=== PATIENT | male | born 1940 | race Caucasian/White ===

== ENCOUNTER → 2016-11-09 | Outpatient (CLI) | payer MEDICARE | END | disposition home or self-care (01) | LOC: GMAM 10:47 | PROVIDERS: ATTEND Family Medicine | DX: Z12.5 Encounter for screening for malignant neoplasm of prostate (principal); Z00.00 Encounter for general adult medical examination without abnormal findings ==

== ENCOUNTER → 2016-11-19 | Outpatient (CLI) | payer MEDICARE | END | disposition home or self-care (01) | LOC: GMAM 14:38 | PROVIDERS: ATTEND Family Medicine | DX: B01.9 Varicella without complication (principal) ==

== ENCOUNTER → 2016-12-03 | Outpatient (CLI) | payer MEDICARE ==
--- NOTE | 2016-12-04 11:31 | MRI ---
EXAM DESCRIPTION: Knee,Left CLINICAL HISTORY: Medial left knee pain popping when flexing the knee. No known injury. COMPARISON: None Available. TECHNIQUE: MRI of the left knee is performed according to our usual protocol with multiplanar multi sequence imaging. FINDINGS: Small left knee joint effusion. 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 Significant thickening of the MCL consistent with prior high-grade sprain. Lateral collateral ligament and PCL intact. Full-thickness horizontal tear of the medial meniscus involving mid body and posterior horn extending all the way to the posterior central attachment site but without displaced fragment. Undersurface tear posterior horn lateral meniscus seen best on coronal imaging. 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 There are subchondral eburnation and cyst formation and reactive edema in the medial tibial plateau. IMPRESSION: 1. Extensive medial meniscus tear 2. 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 Undersurface tear posterior horn lateral meniscus 4. Chronic MCL sprain 5. Severe medial compartment chondrosis Electronically signed by: Donn Hernandez MD 12/04/2016 11:30 AM CDT
== END ==
LOC: MRI 11:07
PROVIDERS: ATTEND Family Medicine
DX: S83.242A Other tear of medial meniscus, current injury, left knee, initial encounter (principal); S83.282A Other tear of lateral meniscus, current injury, left knee, initial encounter; S83.419A Sprain of medial collateral ligament of unspecified knee, initial encounter